=== PATIENT | male | born 1940 | race Caucasian/White ===

== ENCOUNTER → 2016-10-22 | Outpatient (CLI) | payer MEDICARE ==
[~2016-10-22] MED LIST: ACTOS15 MG PO; ASPIRIN81 MG GT; CARDIZEM 90MG T90 MG GT; CARDIZEM30 MG GT; CETIRIZINE HCL10 M1 PO; COUMADIN 5MG TAB5 MG GT; COUMADIN 7.5MG7.5 MG PO; COUMADIN1 MG PO; COUMADIN10 MG PO; COZAAR25 MG PO; FEOSOL ELI220 MG/5 M GT; FLAGYL500 MG GT; FLOMAX0.4 MG GT; FUROSEMIDE20 MG PO; GLUCOPHAGE 500500 MG GT; GLUCOPHAGE 500500 MG PO; HYDRALAZINE HCL50 MG PO; K-DUR TAB 20 M20 MEQ GT; LANOXIN TAB0.125 MG GT; LASIX20 MG GT; LEVAQUIN500 MG GT; LEVEMIR 10100 UNITS/ SQ; LEVEMIR100 UNIT/1 SQ; LISINOPRIL-HCT1 EAC1 PO; LOPRESSOR 50 MG50 MG GT; NOVOLOG100 UNIT/1 SQ; OSMOLITE 1.21000 ML GT; PRAVACHOL20 MG GT; PRAVACHOL20 MG PO; PRAVACHOL40 MG PO; PREVACID30 MG PO; PROTONIX 40 MG40 M1 GT; TYLENOL 325MG325 MG GT
== END ==
LOC: KOH-I 10:42 → EDBD 10:42
DX: M25.551 Pain in right hip (principal); M25.561 Pain in right knee; W19.XXXA Unspecified fall, initial encounter
CPT/HCPCS: 73502; 73564

== ENCOUNTER 2016-10-26 10:50 | Inpatient (IN) | payer MEDICARE, OTHER ==
[~2016-10-26] VITALS: Ht 175.3 cm; Wt 87.1 kg
[2016-10-26 13:59] LABS: HEMOGLOBIN 11.4 gm/dl (14.0-17.5); RED BLOOD COUNT 3.68 M/UL (4.20-5.50); WHITE BLOOD COUNT 25.4 K/UL (4.5-11.0)
[2016-10-26 20:22] LABS: HEMOGLOBIN 11.2 gm/dl (14.0-17.5); RED BLOOD COUNT 3.6 M/UL (4.20-5.50); WHITE BLOOD COUNT 25.2 K/UL (4.5-11.0)
[2016-10-26] MEDS ORDERED: ACTOS15 MG PO (23:03)
[2016-10-26] MEDS ORDERED: GLUCOPHAGE 500500 MG PO (23:03)
[2016-10-26] MEDS ORDERED: LISINOPRIL-HCT1 EAC1 PO (23:04)
[2016-10-26] MEDS ORDERED: PRAVACHOL40 MG PO (23:04)
[2016-10-26] MEDS ORDERED: COUMADIN10 MG PO (23:05)
[2016-10-26] MEDS ORDERED: HYDRALAZINE HCL50 MG PO (23:06)
[2016-10-26] MEDS ORDERED: LOPRESSOR 50 MG50 MG GT (23:06)
[2016-10-27 03:53] LABS: HEMOGLOBIN 10.3 gm/dl (14.0-17.5); RED BLOOD COUNT 3.38 M/UL (4.20-5.50); WHITE BLOOD COUNT 22.6 K/UL (4.5-11.0)
[2016-10-28 04:16] LABS: HEMOGLOBIN 10.1 gm/dl (14.0-17.5); RED BLOOD COUNT 3.25 M/UL (4.20-5.50); WHITE BLOOD COUNT 25.4 K/UL (4.5-11.0)
[2016-10-29 04:37] LABS: HEMOGLOBIN 9.5 gm/dl (14.0-17.5); RED BLOOD COUNT 3.12 M/UL (4.20-5.50); WHITE BLOOD COUNT 24.1 K/UL (4.5-11.0)
[2016-10-29 06:00] LABS: BUN/CREATININE RATIO 45 (0-10)
[2016-10-30 04:24] LABS: HEMOGLOBIN 10.7 gm/dl (14.0-17.5); WHITE BLOOD COUNT 21.3 K/UL (4.5-11.0)
[2016-10-30 04:30] LABS: RED BLOOD COUNT 3.47 M/UL (4.20-5.50)
[2016-10-31 12:44] LABS: HEMOGLOBIN 6.3 gm/dl (14.0-17.5)
[2016-10-31 14:05] LABS: HEMOGLOBIN 10.6 gm/dl (14.0-17.5)
[2016-10-31 17:29] LABS: HEMOGLOBIN 9.9 gm/dl (14.0-17.5); RED BLOOD COUNT 3.29 M/UL (4.20-5.50)
[2016-10-31 17:30] LABS: WHITE BLOOD COUNT 27.1 K/UL (4.5-11.0)
[2016-11-01 05:07] LABS: HEMOGLOBIN 9.7 gm/dl (14.0-17.5); RED BLOOD COUNT 3.21 M/UL (4.20-5.50); WHITE BLOOD COUNT 21.9 K/UL (4.5-11.0)
[2016-11-01 05:28] LABS: BUN/CREATININE RATIO 30 (0-10)
[2016-11-02 05:06] LABS: HEMOGLOBIN 8.7 gm/dl (14.0-17.5); RED BLOOD COUNT 2.9 M/UL (4.20-5.50); WHITE BLOOD COUNT 19.1 K/UL (4.5-11.0)
[2016-11-02 05:27] LABS: BUN/CREATININE RATIO 23 (0-10)
[2016-11-03 04:58] LABS: HEMOGLOBIN 8.1 gm/dl (14.0-17.5); RED BLOOD COUNT 2.71 M/UL (4.20-5.50)
[2016-11-03 05:21] LABS: BUN/CREATININE RATIO 23 (0-10)
[2016-11-03 16:49] LABS: HEMOGLOBIN 9.8 gm/dl (14.0-17.5)
[2016-11-04 04:17] LABS: HEMOGLOBIN 9.5 gm/dl (14.0-17.5)
[2016-11-04 04:18] LABS: RED BLOOD COUNT 3.3 M/UL (4.20-5.50); WHITE BLOOD COUNT 22.6 K/UL (4.5-11.0)
[2016-11-04 04:38] LABS: BUN/CREATININE RATIO 24 (0-10)
[2016-11-04 18:16] LABS: HEMOGLOBIN 9.1 gm/dl (14.0-17.5)
[2016-11-05 05:19] LABS: HEMOGLOBIN 8.2 gm/dl (14.0-17.5)
[2016-11-05 05:22] LABS: RED BLOOD COUNT 2.82 M/UL (4.20-5.50); WHITE BLOOD COUNT 13.9 K/UL (4.5-11.0)
[2016-11-05 05:51] LABS: BUN/CREATININE RATIO 24 (0-10)
[2016-11-06 04:14] LABS: HEMOGLOBIN 9.4 gm/dl (14.0-17.5); RED BLOOD COUNT 3.27 M/UL (4.20-5.50); WHITE BLOOD COUNT 17.5 K/UL (4.5-11.0)
[2016-11-06 04:37] LABS: BUN/CREATININE RATIO 22 (0-10)
[2016-11-07 03:42] LABS: HEMOGLOBIN 8.5 gm/dl (14.0-17.5); RED BLOOD COUNT 2.98 M/UL (4.20-5.50)
[2016-11-07 03:44] LABS: WHITE BLOOD COUNT 12.8 K/UL (4.5-11.0)
[2016-11-07 03:57] LABS: BUN/CREATININE RATIO 25 (0-10)
[2016-11-08 03:18] LABS: HEMOGLOBIN 8.4 gm/dl (14.0-17.5); RED BLOOD COUNT 2.97 M/UL (4.20-5.50); WHITE BLOOD COUNT 12.7 K/UL (4.5-11.0)
[2016-11-08 03:34] LABS: BUN/CREATININE RATIO 27 (0-10)
[2016-11-09 03:27] LABS: HEMOGLOBIN 8.4 gm/dl (14.0-17.5); RED BLOOD COUNT 2.98 M/UL (4.20-5.50); WHITE BLOOD COUNT 9.6 K/UL (4.5-11.0)
[2016-11-09 03:42] LABS: BUN/CREATININE RATIO 27 (0-10)
[2016-11-10 05:31] LABS: HEMOGLOBIN 8.2 gm/dl (14.0-17.5); RED BLOOD COUNT 2.86 M/UL (4.20-5.50); WHITE BLOOD COUNT 9.5 K/UL (4.5-11.0)
[2016-11-10 05:47] LABS: BUN/CREATININE RATIO 27 (0-10)
[2016-11-11 03:54] LABS: HEMOGLOBIN 8.6 gm/dl (14.0-17.5); WHITE BLOOD COUNT 8.5 K/UL (4.5-11.0)
[2016-11-11 04:22] LABS: BUN/CREATININE RATIO 27 (0-10)
[2016-11-12 04:38] LABS: HEMOGLOBIN 8.7 gm/dl (14.0-17.5); RED BLOOD COUNT 3.09 M/UL (4.20-5.50); WHITE BLOOD COUNT 9.5 K/UL (4.5-11.0)
[2016-11-12 05:04] LABS: BUN/CREATININE RATIO 26 (0-10)
[2017-05-29] MEDS ORDERED: GLUCOPHAGE 500500 MG GT (05:07)
[2017-05-29] MEDS ORDERED: COUMADIN1 MG PO (15:43)
== END 2016-11-12 15:30 | DRG 853 ==
LOC: ER1 10:50 → PROG CARE 16:15 → ZEROF 16:15 → CCU 16:15 → PROG CARE 22:40 → CCU 10-31 14:31 → EDBD 11-12 15:30
PROVIDERS: Family Medicine; Internal Medicine; Nurse Anesthetist, Certified Registered; Orthopaedic Surgery; Physician Assistant; ADMIT Family Medicine
PROC: 0JBN0ZZ Excision of Right Lower Leg Subcutaneous Tissue and Fascia, Open Approach (ICD-10-PCS; 2016-10-31)
PROC: 30233N1 Transfusion of Nonautologous Red Blood Cells into Peripheral Vein, Percutaneous Approach (ICD-10-PCS; 2016-10-31)
PROC: 0JBL0ZZ Excision of Right Upper Leg Subcutaneous Tissue and Fascia, Open Approach (ICD-10-PCS; principal; 2016-10-31 11:00)
PROC: 05HM33Z Insertion of Infusion Device into Right Internal Jugular Vein, Percutaneous Approach (ICD-10-PCS; 2016-11-01)
PROC: 0JBL0ZZ Excision of Right Upper Leg Subcutaneous Tissue and Fascia, Open Approach (ICD-10-PCS; 2016-11-03)
PROC: 0JBN0ZZ Excision of Right Lower Leg Subcutaneous Tissue and Fascia, Open Approach (ICD-10-PCS; 2016-11-03)
PROC: 0JQN0ZZ Repair Right Lower Leg Subcutaneous Tissue and Fascia, Open Approach (ICD-10-PCS; 2016-11-03)
PROC: 30233N1 Transfusion of Nonautologous Red Blood Cells into Peripheral Vein, Percutaneous Approach (ICD-10-PCS; 2016-11-03)
PROC: 0JBL0ZZ Excision of Right Upper Leg Subcutaneous Tissue and Fascia, Open Approach (ICD-10-PCS; 2016-11-05)
PROC: 0JQL0ZZ Repair Right Upper Leg Subcutaneous Tissue and Fascia, Open Approach (ICD-10-PCS; 2016-11-05)
PROC: 30233N1 Transfusion of Nonautologous Red Blood Cells into Peripheral Vein, Percutaneous Approach (ICD-10-PCS; 2016-11-05)
PROC: B246ZZ4 Ultrasonography of Right and Left Heart, Transesophageal (ICD-10-PCS; 2016-11-09)
DX: A41.9 Sepsis, unspecified organism (principal); G93.41 Metabolic encephalopathy; I63.9 Cerebral infarction, unspecified; L03.115 Cellulitis of right lower limb; L02.415 Cutaneous abscess of right lower limb; E13.52 Other specified diabetes mellitus with diabetic peripheral angiopathy with gangrene; I38 Endocarditis, valve unspecified; N17.9 Acute kidney failure, unspecified; E87.1 Hypo-osmolality and hyponatremia; M25.061 Hemarthrosis, right knee; D72.829 Elevated white blood cell count, unspecified; Z95.2 Presence of prosthetic heart valve; R41.82 Altered mental status, unspecified; Z79.01 Long term (current) use of anticoagulants; I12.9 Hypertensive chronic kidney disease with stage 1 through stage 4 chronic kidney disease, or unspecified chronic kidney disease; N18.9 Chronic kidney disease, unspecified; R00.0 Tachycardia, unspecified; I65.23 Occlusion and stenosis of bilateral carotid arteries; I25.10 Atherosclerotic heart disease of native coronary artery without angina pectoris; I48.91 Unspecified atrial fibrillation; Z51.89 Encounter for other specified aftercare; E78.5 Hyperlipidemia, unspecified; Z82.49 Family history of ischemic heart disease and other diseases of the circulatory system; R60.9 Edema, unspecified; Z79.899 Other long term (current) drug therapy; Z79.4 Long term (current) use of insulin; Z95.1 Presence of aortocoronary bypass graft; J30.9 Allergic rhinitis, unspecified; Z82.3 Family history of stroke; Z79.891 Long term (current) use of opiate analgesic; Z79.1 Long term (current) use of non-steroidal anti-inflammatories (NSAID)
CPT/HCPCS: ECHO; 36415; 70450; 70544; 70551; 71010; 73502; 73552; 73562; 73700; 73720; 80048; 80053; 80202; 81001; 82330; 82550; 82553; 82803; 82962; 83605; 83735; 83874; 84100; 84132; 84484; 85014; 85018; 85025; 85027; 85379; 85610; 85730; 86140; 86850; 86900; 86901; 86920; 87040; 87070; 87077; 87086; 87186; 87205; 89051; 89060; 92526; 92610; 93005; 93306; 93312; 93320; 93880; 93926; 93971; 94640; 94664; 96365; 96366; 96367; 96375; 96376; 97110; 97112; 97116; 97530; 97535; 99285; A9577; C1751; C9113; J1100; J1160; J1650; J2001; J2250; J2270; J2274; J2370; J2405; J2543; J3010; J3370; J3430; J3480; J7030; J7040; J7050; J7070; J7120; P9016; P9045

== ENCOUNTER 2017-01-09 11:54 | Inpatient (IN) | payer MEDICARE ==
[~2017-01-09] VITALS: Ht 177.8 cm; Wt 73.5 kg
[~2017-01-09 11:54] MED LIST changes: -ASPIRIN81 MG GT; -CARDIZEM 90MG T90 MG GT; -CARDIZEM30 MG GT; -CETIRIZINE HCL10 M1 PO; -COUMADIN 5MG TAB5 MG GT; -COUMADIN 7.5MG7.5 MG PO; -COUMADIN1 MG PO; -COZAAR25 MG PO; -FEOSOL ELI220 MG/5 M GT; -FLAGYL500 MG GT; -FLOMAX0.4 MG GT; -FUROSEMIDE20 MG PO; -GLUCOPHAGE 500500 MG GT; -K-DUR TAB 20 M20 MEQ GT; -LANOXIN TAB0.125 MG GT; -LASIX20 MG GT; -LEVAQUIN500 MG GT; -LEVEMIR 10100 UNITS/ SQ; -LEVEMIR100 UNIT/1 SQ; -NOVOLOG100 UNIT/1 SQ; -OSMOLITE 1.21000 ML GT; -PRAVACHOL20 MG GT; -PRAVACHOL20 MG PO; -PREVACID30 MG PO; -PROTONIX 40 MG40 M1 GT; -TYLENOL 325MG325 MG GT
[2017-01-09 13:02] LABS: HEMOGLOBIN 9.6 gm/dl (14.0-17.5); RED BLOOD COUNT 3.43 M/UL (4.20-5.50); WHITE BLOOD COUNT 12.5 K/UL (4.5-11.0)
[2017-01-09 13:14] LABS: BUN/CREATININE RATIO 42 (0-10)
[2017-01-09] MEDS ORDERED: CARDIZEM 90MG T90 MG GT (17:44)
[2017-01-09] MEDS ORDERED: FEOSOL ELI220 MG/5 M GT (17:47)
[2017-01-09] MEDS ORDERED: LEVEMIR100 UNIT/1 SQ (17:50)
[2017-01-09] MEDS ORDERED: FLAGYL500 MG GT (17:51)
[2017-01-09] MEDS ORDERED: COZAAR25 MG PO (17:52)
[2017-01-09] MEDS ORDERED: FLOMAX0.4 MG GT (17:52)
[2017-01-09] MEDS ORDERED: PRAVACHOL20 MG PO (17:53)
[2017-01-09] MEDS ORDERED: GLUCOPHAGE 500500 MG GT (18:00)
[2017-01-09] MEDS ORDERED: PREVACID30 MG PO (18:00)
[2017-01-09] MEDS ORDERED: LEVAQUIN500 MG GT (18:01)
[2017-01-09] MEDS ORDERED: FUROSEMIDE20 MG PO (18:01)
[2017-01-09] MEDS ORDERED: ASPIRIN81 MG GT (18:02)
[2017-01-09] MEDS ORDERED: COUMADIN 7.5MG7.5 MG PO (18:02)
[2017-01-10 12:08] LABS: HEMOGLOBIN 8.5 gm/dl (14.0-17.5); WHITE BLOOD COUNT 11.8 K/UL (4.5-11.0)
[2017-01-10 12:11] LABS: RED BLOOD COUNT 3.01 M/UL (4.20-5.50)
[2017-01-10 12:22] LABS: BUN/CREATININE RATIO 55 (0-10)
[2017-01-11 04:12] LABS: HEMOGLOBIN 8.5 gm/dl (14.0-17.5); RED BLOOD COUNT 3.03 M/UL (4.20-5.50); WHITE BLOOD COUNT 10.5 K/UL (4.5-11.0)
[2017-01-11 04:41] LABS: BUN/CREATININE RATIO 49 (0-10)
[2017-01-12 04:07] LABS: HEMOGLOBIN 8.4 gm/dl (14.0-17.5); RED BLOOD COUNT 3.01 M/UL (4.20-5.50)
[2017-01-12 04:09] LABS: WHITE BLOOD COUNT 7.2 K/UL (4.5-11.0)
[2017-01-12 04:27] LABS: BUN/CREATININE RATIO 44 (0-10)
[2017-01-13 03:48] LABS: HEMOGLOBIN 8.6 gm/dl (14.0-17.5); RED BLOOD COUNT 3.03 M/UL (4.20-5.50); WHITE BLOOD COUNT 6.4 K/UL (4.5-11.0)
[2017-01-13 04:10] LABS: BUN/CREATININE RATIO 43 (0-10)
[2017-01-14 05:54] LABS: HEMOGLOBIN 9.5 gm/dl (14.0-17.5); WHITE BLOOD COUNT 7.8 K/UL (4.5-11.0)
[2017-01-14 05:56] LABS: RED BLOOD COUNT 3.37 M/UL (4.20-5.50)
[2017-01-14 06:12] LABS: BUN/CREATININE RATIO 40 (0-10)
[2017-01-15 04:13] LABS: HEMOGLOBIN 8.4 gm/dl (14.0-17.5); WHITE BLOOD COUNT 6.6 K/UL (4.5-11.0)
[2017-01-15 04:14] LABS: RED BLOOD COUNT 3.02 M/UL (4.20-5.50)
[2017-01-15 04:34] LABS: BUN/CREATININE RATIO 40 (0-10)
[2017-01-15] MEDS ORDERED: NOVOLOG100 UNIT/1 SQ (10:25)
[2017-01-15] MEDS ORDERED: OSMOLITE 1.21000 ML GT (10:29)
[2017-01-15] MEDS ORDERED: LEVEMIR 10100 UNITS/ SQ (10:31)
[2017-01-15] MEDS ORDERED: TYLENOL 325MG325 MG GT (10:37)
[2017-01-15] MEDS ORDERED: COUMADIN 5MG TAB5 MG GT (10:48)
[2017-01-15] MEDS ORDERED: CARDIZEM30 MG GT (11:56)
[2017-01-15] MEDS ORDERED: PROTONIX 40 MG40 M1 GT (12:25)
[2017-01-15] MEDS ORDERED: PRAVACHOL20 MG GT (12:26)
--- NOTE | 2017-01-15 12:28 | NUR ---
REPORT CALLED TO SHELIA HINOJOSA AT [facility] FOR TRANSFER TO [facility]
[2017-05-29] MEDS ORDERED: GLUCOPHAGE 500500 MG GT (05:07)
[2017-05-29] MEDS ORDERED: COUMADIN1 MG PO (15:43)
== END 2017-01-15 09:00 | DRG 308 ==
LOC: ER1 11:54 → PROG CARE 14:40 → ZEROF 14:40 → PROG CARE 01-15 09:00 → EDBD 01-15 09:00
PROVIDERS: Family Medicine; Physician Assistant; ADMIT Family Medicine
DX: I48.91 Unspecified atrial fibrillation (principal); J69.0 Pneumonitis due to inhalation of food and vomit; I69.359 Hemiplegia and hemiparesis following cerebral infarction affecting unspecified side; I12.9 Hypertensive chronic kidney disease with stage 1 through stage 4 chronic kidney disease, or unspecified chronic kidney disease; E11.22 Type 2 diabetes mellitus with diabetic chronic kidney disease; N18.3 Chronic kidney disease, stage 3 (moderate); I25.10 Atherosclerotic heart disease of native coronary artery without angina pectoris; D64.9 Anemia, unspecified; I95.9 Hypotension, unspecified; I69.391 Dysphagia following cerebral infarction; I69.320 Aphasia following cerebral infarction; R13.10 Dysphagia, unspecified; E78.5 Hyperlipidemia, unspecified; J30.9 Allergic rhinitis, unspecified; Z66 Do not resuscitate; Z95.2 Presence of prosthetic heart valve; Z93.1 Gastrostomy status; Z79.01 Long term (current) use of anticoagulants; Z79.4 Long term (current) use of insulin; Z79.84 Long term (current) use of oral hypoglycemic drugs; Z79.82 Long term (current) use of aspirin; Z79.899 Other long term (current) drug therapy; Z88.5 Allergy status to narcotic agent; Z82.3 Family history of stroke
CPT/HCPCS: 36415; 71010; 73110; 73130; 80048; 80053; 82550; 82553; 82962; 83874; 83880; 84484; 85025; 85027; 85610; 85730; 93005; 97110; 97530; 99285; J7030

== ENCOUNTER 2017-02-11 16:20 | Inpatient (IN) | payer MEDICARE ==
[~2017-02-11] VITALS: Ht 175.3 cm; Wt 78.2 kg
[~2017-02-11 16:20] MED LIST changes: +ASPIRIN81 MG GT; +CARDIZEM 90MG T90 MG GT; +CARDIZEM30 MG GT; +COUMADIN 5MG TAB5 MG GT; +COUMADIN 7.5MG7.5 MG PO; +COZAAR25 MG PO; +FEOSOL ELI220 MG/5 M GT; +FLAGYL500 MG GT; +FLOMAX0.4 MG GT; +FUROSEMIDE20 MG PO; +GLUCOPHAGE 500500 MG GT; +LEVAQUIN500 MG GT; +LEVEMIR 10100 UNITS/ SQ; +LEVEMIR100 UNIT/1 SQ; +NOVOLOG100 UNIT/1 SQ; +OSMOLITE 1.21000 ML GT; +PRAVACHOL20 MG GT; +PRAVACHOL20 MG PO; +PREVACID30 MG PO; +PROTONIX 40 MG40 M1 GT; +TYLENOL 325MG325 MG GT
[2017-02-11 17:12] LABS: HEMOGLOBIN 12.9 gm/dl (14.0-17.5); RED BLOOD COUNT 4.46 M/UL (4.20-5.50); WHITE BLOOD COUNT 7.5 K/UL (4.5-11.0)
[2017-02-11 17:39] LABS: BUN/CREATININE RATIO 20 (0-10)
[2017-02-11] MEDS ORDERED: CETIRIZINE HCL10 M1 PO (21:47)
[2017-02-12 05:13] LABS: BUN/CREATININE RATIO 20 (0-10)
[2017-02-13 05:53] LABS: RED BLOOD COUNT 4.21 M/UL (4.20-5.50); WHITE BLOOD COUNT 6.6 K/UL (4.5-11.0)
[2017-02-13 06:13] LABS: BUN/CREATININE RATIO 25 (0-10)
[2017-02-13] MEDS ORDERED: LASIX20 MG GT (15:28)
[2017-02-13] MEDS ORDERED: K-DUR TAB 20 M20 MEQ GT (15:32)
[2017-02-13] MEDS ORDERED: LANOXIN TAB0.125 MG GT (15:37)
[2017-05-29] MEDS ORDERED: GLUCOPHAGE 500500 MG GT (05:07)
[2017-05-29] MEDS ORDERED: COUMADIN1 MG PO (15:43)
== END 2017-02-13 16:47 | disposition home health service (06) | DRG 309 ==
LOC: ER1 16:20 → M/S 19:40 → ZEROF 19:40 → M/S 21:05 → EDBD 02-13 16:47 → M/S 02-13 16:47
PROVIDERS: Family Medicine; Student in an Organized Health Care Education/Training Program; ADMIT Internal Medicine
DX: I48.91 Unspecified atrial fibrillation (principal); J98.11 Atelectasis; I50.42 Chronic combined systolic (congestive) and diastolic (congestive) heart failure; E11.9 Type 2 diabetes mellitus without complications; I25.10 Atherosclerotic heart disease of native coronary artery without angina pectoris; J30.9 Allergic rhinitis, unspecified; E78.5 Hyperlipidemia, unspecified; N18.3 Chronic kidney disease, stage 3 (moderate); R01.1 Cardiac murmur, unspecified; Z91.14 Patient's other noncompliance with medication regimen; Z86.73 Personal history of transient ischemic attack (TIA), and cerebral infarction without residual deficits; Z95.2 Presence of prosthetic heart valve; Z82.3 Family history of stroke; Z82.49 Family history of ischemic heart disease and other diseases of the circulatory system; Z79.82 Long term (current) use of aspirin; Z79.01 Long term (current) use of anticoagulants; Z79.4 Long term (current) use of insulin; Z88.5 Allergy status to narcotic agent
CPT/HCPCS: 36415; 71010; 80048; 80053; 81001; 82550; 82553; 82962; 83605; 83735; 83874; 83880; 84439; 84443; 84484; 85025; 85027; 85610; 85730; 87086; 93005; 94664; 96374; 96375; 99285; J1160; J1940